=== PATIENT | female | born 1975 | race Caucasian/White ===

== ENCOUNTER → 2016-12-08 | Day surgery (SDC) | payer OTHER ==
[~2016-12-08] MED LIST: ACETAMINOPHEN 1000 MG/100 ML 100 ML IV ONE; DEXAMETHASONE SOD PHOS 4 MG/ML VIAL IV ONE; EPINEPHrine HCL (1:1000) 1 MG/ML VIAL OTHER ONE; KETOROLAC TROMETHAMINE 30 MG/ML (IVP) VIAL ONE; LACTATED RINGER'S 1000 ML INJ 1,000 ML ONE; LIDOCAINE HCL 1% 50 ML VIAL ONE; MIDAZOLAM HCL 2 MG/2 ML VIAL ONE; ONDANSETRON HCL 4 MG/2 ML VIAL IV PUSH ONE; PROPOFOL 200 MG/20 ML AMP IV ONE; ceFAZolin INJ 1,000 MG VIAL ONE
--- NOTE | 2016-12-08 12:03 | TN ---
cc: JOSE WALTON M.D. DATE OF SURGERY: 12/08/2016 PREOPERATIVE DIAGNOSIS Lipodystrophy of the torso. POSTOPERATIVE DIAGNOSIS Lipodystrophy of the torso. PROCEDURE [facility]. SURGEON Jose Walton MD, FACS. ANESTHESIA LMA general. TOTAL I'S AND O'S 2428 in, 1350 out. TOTAL ENERGY Total energy applied 60,000 joules, of those 40,000 were in the anterior upper and lower abdomen and 20,000 was on the right and left upper and lower back. PROCEDURE IN DETAIL She was properly consented, marked and properly anesthetized. The skin was sterilized with Betadine solution and a Tulip draping system was utilized. I proceeded and performed strategic puncture wounds utilizing an 11 blade, that were thereafter closed after the procedure utilizing 5-0 chromic suture and Steri-Strips. The tumescent was applied. The formula was as following, 1000 cc of normal saline, 30 cc of 1% lidocaine with epinephrine mixed with 1 cc of epinephrine 1:1000. I proceeded and delivered the energy by quadrants, 10,000 joules, as the patient was rotated [id number]. We delivered also 10,000 joules to the back. Evacuation took to place after that utilizing a 2.5 mm cannula, technology. I proceeded and turned the patient [id number] by approaching and achieving that. With this I proceeded and placed the patient supine. An abdominal binder was applied for dressings. The patient was awakened, extubated in the operating room and transferred back to the post-anesthesia care unit in stable condition. No complications appreciated. The patient tolerated the procedure fairly well. MD LUDY Oglesby/RANDY /11:41 AM /11:52 AM
== END | disposition home or self-care (01) ==
LOC: ESDC 09:13
PROVIDERS: ATTEND Plastic Surgery
DX: Z41.1 Encounter for cosmetic surgery (principal)
CPT/HCPCS: 00300; 00400; 15877; J0131; J0171; J0690; J1100; J1885; J2250; J2405; J3010; J7120